=== PATIENT | female | born 1945 | race Caucasian/White ===

== ENCOUNTER 2019-02-19 16:16 | Inpatient (IN) ==
[2019-02-19] MEDS ORDERED: Ipratropium/Albuterol Neb 3 ML IH ONE (16:22)
[2019-02-19] MEDS ORDERED: Furosemide 40 MG/4 ML VIAL IVP ONE (16:22)
[2019-02-19] MEDS ORDERED: methylPREDNISolone 125 MG/2 ML VIAL IVP ONE (16:22)
--- NOTE | 2019-02-19 16:23 | Emergency Department Note ---
Disposition Clinical Impression: Congestive heart failure Qualifiers: Heart failure type: unspecified Heart failure chronicity: acute on chronic Qualified Code(s): I50.9 - Heart failure, unspecified Disposition: Admitted As Inpatient Condition: Fair Referrals: NONE,PCP [Non-Partnered Physician] - Forms: ED Satisfaction Letter Time of Disposition: 17:29 SOB HPI - General Chief Complaint: ED Shortness of Breath/Dyspnea Stated Complaint: shortness of breath Time Seen by Provider: 02/19/19 16:22 Source: patient, EMS Mode of arrival: EMS Limitations: no limitations Nursing Notes Reviewed: Yes Vital Signs Reviewed: Yes - History of Present Illness Patient presents with a chief complaint of "cannot breathe". She relates this has been coming on over 2 days and she has had her oxygen increased from 2-4 L. Because of her persistent dyspnea the nurse at [facility] has had her come in for evaluation. She states she has had a cough productive of scant clear phlegm. She has feeling some chills but no definite fever. She denies chest pain or palpitations. She denies any ill exposures. She has noted some increased swelling of her legs and orthopnea. This is similar to what she has hand with some pulmonary edema/CHF. She states she is followed that for a long time and in the last 2 weeks has had her Lasix increased. She also has history of asthma and COPD. Her last inhaler use was yesterday. She has had a change in medicines. She denies abdominal pain, nausea, diaphoresis or diarrhea. She denies back pain or jaw pain. She arrives by EMS on 4 L nasal cannula with reported saturation 94%. Transitioning to our bed she dropped to 76% on room a ir and stays at about 90% on 4 L. She is alert and answering questions appropriately. [facility] the [facility], the patient has CPAP available to her but she refuses to use it. Pt Subjective Complaint: shortness of breath Onset (ago): day(s) (2) Severity: moderate, severe Consistency/Duration: gradually worsening Improves with: oxygen, rest, upright position Worsens with: lying flat, exertion, movement, coughing Known history of: COPD, asthma, congestive heart failure Associated symptoms: Reports: fever, cough, wheezing, sputum production, orthopnea. Denies: chest pain, pain with inspiration, lower extremity pain, polyuria, polydipsia, parasthesias, palpitations, hemoptysis, diaphoresis, nausea/vomiting, syncope, abdominal pain, rash Treatment prior to arrival: oxygen Cough present: Yes Cough Description: Voluntary, Rattling, Wheezy Cough Frequency: Intermittent Sputum production: Yes Sputum Amount: Scant Sputum Color: Clear - Related Data Home oxygen amount: 4 liters Home Medications Medication Instructions Recorded Confirmed Albuterol Sulfate [Ventolin Hfa] 2 puff IH Q4H PRN 09/13/18 02/19/19 Citalopram Hydrobromide 40 mg PO DAILY 09/13/18 02/19/19 [Citalopram HBr] Furosemide [Lasix] 40 mg PO DAILY 09/13/18 02/19/19 Metoprolol Tartrate 50 mg PO BID 09/13/18 02/19/19 Montelukast [Singulair] 10 mg PO DAILY 09/13/18 02/19/19 Omeprazole [PriLOSEC] 20 mg PO DAILY 09/13/18 02/19/19 Potassium Chloride 20 meq PO DAILY 09/13/18 02/19/19 Topiramate 25 mg PO QAM 09/13/18 02/19/19 Topiramate 50 mg PO HS 09/13/18 02/19/19 Umeclidinium Ruth [Incruse 1 puff IH DAILY 09/13/18 02/19/19 Ellipta] Acetaminophen [Tylenol] 325 mg PO Q6HR PRN 01/27/19 02/19/19 Amlodipine Besylate 10 mg PO DAILY 01/27/19 02/19/19 Aspirin [Adult Aspirin Regimen] 81 mg PO DAILY 01/27/19 02/19/19 Ferrous Sulfate 325 mg PO DAILY 01/27/19 02/19/19 Multivitamin [Daily Multiple 1 tab PO DAILY 01/27/19 02/19/19 Vitamin] Dextran 70/Hypromellose/Pf 1 each OP QID PRN 02/19/19 02/19/19 [Artificial Tears Drops] Fluticasone/Vilanterol [Breo 1 each IH DAILY 02/19/19 02/19/19 Ellipta 200-25 Mcg INH] Nystatin POWDER [Nystop] 1 appl TP BID 02/19/19 02/19/19 Allergies Allergy/AdvReac Type Severity Reaction Status Date / Time Iodinated Contrast- Oral and Allergy Rash Verified 09/13/18 07:33 IV Dye [Iodinated Contrast Media - Oral and] All systems ED: reviewed and negative except as stated. Past Medical History - Past Medical History Attestation: Yes The following information was validated with the patient. Source: patient, old records reviewed, nursing notes reviewed Medical history: Reports: asthma, cancer, CHF, COPD, diabetes, hypertension, other (Elevated BMI) Surgical history: Reports: appendectomy, orthopedic, other, other Psychiatric history: Reports: no psych history [employer] history: Reports: bilateral tubal ligation - Social History Smoking Status: Never smoker Smokeless Tobacco Status: No Alcohol use: Reports: none Drug use: Reports: none Physical Exam - General Limitations: no limitations General appearance: alert, anxious, in distress (Moderate dyspnea) - Head Head exam: atraumatic, normocephalic, normal inspection - Eye Eye exam: Present: normal appearance, PERRL, EOMI - ENT ENT exam: normal exam, normal oropharynx, mucous membranes moist - Neck Neck exam: Present: normal inspection, full ROM, trachea midline. Absent: tenderness, meningismus - Chest Chest inspection: Present: normal inspection, symmetric chest wall rise - Respiratory Respiratory exam: Present: respiratory distress, wheezes, prolonged expiratory phase. Absent: accessory muscle use - Cardiovascular Cardiovascular exam: Present: regular rate, normal rhythm, normal heart sounds. Absent: JVD - Abdominal Exam Abdominal exam: Present: soft, Non-Tender, normal bowel sounds. Absent: tenderness, distention, guarding, rebound, rigidity - Extremities Exam Extremities exam: Present: normal inspection, full ROM, normal capillary refill, pedal edema (2+). Absent: tenderness, calf tenderness - Expanded Lower Extremity Exam Neurovascular/Tendon exam: Present: normal capillary refill. Absent: motor deficit, sensory deficit, tendon deficit Gait: not tested/not observed - Neurological Exam Neurological exam: Present: alert, oriented X3 - Psychiatric Psychiatric exam: Present: normal affect, anxious - Skin Skin exam: Present: warm, dry, intact, normal color. Absent: cyanosis, diaphoresis, pallor Course Course Narrative: 1725: With return of all testing, care is been discussed with the patient. She has been up to urinate twice after the IV Lasix but remained severely dyspneic with any exertion. She is apparently able to climb out the patient to be assisted to the bedside commode. I discussed her care and, although initially adamant about returning [facility], she is agreeable to staying for a day or 2 for diuresis and observation. We did contact the penitentiary and they would not be able to administer further IV doses of Lasix. A page has been roxanna nivia to Dr. Sharp for this purpose. Patient's presentation and evaluation has been discussed with Dr. Sharp. Verbal orders have been obtained for this patient's observation. Vital Signs Temperature 97.7 F 02/19/19 16:19 Pulse Rate 54 02/19/19 16:19 Respiratory Rate 22 02/19/19 16:19 Blood Pressure 172/51 02/19/19 16:19 O2 Sat by Pulse Oximetry 91 02/19/19 16:19 Temperature 97.7 F 02/19/19 16:19 Pulse Rate 63 02/19/19 17:18 Respiratory Rate 24 02/19/19 17:18 Blood Pressure 154/114 02/19/19 17:18 O2 Sat by Pulse Oximetry 93 02/19/19 17:18 Oxygen Delivery Oxygen Delivery Nasal Cannula Shortness of Breath/Dyspnea - Differential Diagnosis Likely: acute exacerbation of chronic obstructive airways disease, congestive heart failure, asthma with exacerbation. Unlikely: arrhythmia - Medical Records Medical records reviewed: Yes I reviewed the patient's medical records. - Lab Data Lab results reviewed: Yes I reviewed the patient's lab results. Result diagrams: 02/19/19 16:43 02/19/19 16:43 Lab Results 02/19/19 02/19/19 02/19/19 Range/Units 16:43 16:43 16:43 WBC 8.5 (4.3-11.1) K/mcL RBC 4.06 (3.82-4.97) M/mcL Hgb 11.3 L (11.5-15.4) g/dL Hct 40.2 (35.3-44.9) % MCV 99.0 (83.0-100.0) fL MCH 27.8 L (28.0-33.3) pg MCHC 28.1 L (31.6-35.5) g/dL RDW 16.8 H (11.5-14.5) % Plt Count 240 (140-400) K/mcL MPV 10.2 (9.4-12.4) fL Immature Gran % 0.7 (0-4) % Seg Neutrophils % 81.9 % Lymphocytes % 9.1 % Monocytes % 5.5 % Eosinophils % 2.7 % Basophils % 0.1 % Neutrophils # 7.0 (1.6-8.9) K/mcL Lymphocytes # 0.8 (0.6-4.6) K/mcL Monocytes # 0.5 (0.0-1.3) K/mcL Eosinophils # 0.2 (0.0-0.6) K/mcL Basophils # 0.0 (0.0-0.2) K/mcL Hypochromasia Present A (Not Present) Basophilic Stippling 1+ A (Not Present) Anisocytosis 1+ A (Not Present) Macrocytosis Present A (Not Present) PT 13.5 H (9.4-12.1) Seconds INR 1.2 Sodium 143 (136-145) mEq/L Potassium 4.0 (3.5-5.1) mEq/L Chloride 100 (98-107) mEq/L Carbon Dioxide 41 H* (23-29) mEq/L BUN 27 H (8-23) mg/dL Creatinine 0.97 (0.60-1.20) mg/dL Est GFR ( Amer) > 60 (> 60) Est GFR (Non-Af Amer) 56 L (> 60) BUN/Creatinine Ratio 28 H (6-26) Glucose 192 H (70-105) mg/dL Calculated Osmolality 306 H (280-300) Lactic Acid (0.5-2.2) mmol/L Calcium 9.2 (8.6-10.3) mg/dL Troponin I < 0.03 (< 0.04) ng/mL B-Natriuretic Peptide (Less than 100) pg/mL Urine Color (Yellow) Urine Clarity (Clear) Urine pH (5.0-8.0) pH Units Ur Specific [place] (1.010-1.025) Urine Protein (Neg-Trace) mg/dL Urine Glucose (UA) (Normal) mg/dL Urine Ketones (Negative) mg/dL Urine Blood (Negative) Urine Nitrite (Negative) Urine Bilirubin (Negative) Urine Urobilinogen (Normal) mg/dL Ur Leukocyte Esterase (Negative) Ur Culture Indicated? (NO) 02/19/19 02/19/19 02/19/19 Range/Units 16:43 16:43 17:12 WBC (4.3-11.1) K/mcL RBC (3.82-4.97) M/mcL Hgb (11.5-15.4) g/dL Hct (35.3-44.9) % MCV (83.0-100.0) fL MCH (28.0-33.3) pg MCHC (31.6-35.5) g/dL RDW (11.5-14.5) % Plt Count (140-400) K/mcL MPV (9.4-12.4) fL Immature Gran % (0-4) % Seg Neutrophils % % Lymphocytes % % Monocytes % % Eosinophils % % Basophils % % Neutrophils # (1.6-8.9) K/mcL Lymphocytes # (0.6-4.6) K/mcL Monocytes # (0.0-1.3) K/mcL Eosinophils # (0.0-0.6) K/mcL Basophils # (0.0-0.2) K/mcL Hypochromasia (Not Present) Basophilic Stippling (Not Present) Anisocytosis (Not Present) Macrocytosis (Not Present) PT (9.4-12.1) Seconds INR Sodium (136-145) mEq/L Potassium (3.5-5.1) mEq/L Chloride (98-107) mEq/L Carbon Dioxide (23-29) mEq/L BUN (8-23) mg/dL Creatinine (0.60-1.20) mg/dL Est GFR ( Amer) (> 60) Est GFR (Non-Af Amer) (> 60) BUN/Creatinine Ratio (6-26) Glucose (70-105) mg/dL Calculated Osmolality (280-300) Lactic Acid 0.8 (0.5-2.2) mmol/L Calcium (8.6-10.3) mg/dL Troponin I (< 0.04) ng/mL B-Natriuretic Peptide 278 H (Less than 100) pg/mL Urine Color Yellow (Yellow) Urine Clarity Clear (Clear) Urine pH 5.5 (5.0-8.0) pH Units Ur Specific [place] 1.020 (1.010-1.025) Urine Protein Trace (Neg-Trace) mg/dL Urine Glucose (UA) Normal (Normal) mg/dL Urine Ketones Negative (Negative) mg/dL Urine Blood Negative (Negative) Urine Nitrite Negative (Negative) Urine Bilirubin Negative (Negative) Urine Urobilinogen Normal (Normal) mg/dL Ur Leukocyte Esterase Negative (Negative) Ur Culture Indicated? NO (NO) - Radiology Data Radiology results reviewed: Yes I reviewed the patient's radiology results. Single view chest x-rays performed. This shows diffuse interstitial increase markings and perihilar fullness consistent with pulmonary edema. I do not see focal infiltrates or pneumothorax. The cardiac silhouette is enlarged. This is on my interpretation. Impressions Chest X-Ray 02/19/19 16:22 IMPRESSION: 1. Cardiomegaly and evidence of acute congestive heart failure. 2. Patchy left lung consolidation which may represent atelectasis though a secondary pneumonia cannot be excluded. D/ / Royer Pack MD / Royer Pack MD Interpreting Provider: Royer Pack MD - EKG Data EKG attestation: Yes I reviewed and interpreted this EKG. EKG shows normal: Reports: sinus rhythm, axis, intervals, QRS complexes, ST-T waves Rate: Reports: normal (60) Interpretation: Reports: no acute changes, normal EKG
[2019-02-19 16:57] LABS: Basophils % 0.1 %; Eosinophils # 0.2 K/mcL (0.0-0.6); Eosinophils % 2.7 %; Hematocrit 40.2 % (35.3-44.9); Hemoglobin 11.3 g/dL (11.5-15.4); Immature Granulocytes % 0.7 % (0-4); Lymphocytes # 0.8 K/mcL (0.6-4.6); Lymphocytes % 9.1 %; Mean Corpuscular HGB Conc 28.1 g/dL (31.6-35.5); Mean Corpuscular Hemoglobin 27.8 pg (28.0-33.3); Mean Platelet Volume 10.2 fL (9.4-12.4); Monocytes # 0.5 K/mcL (0.0-1.3); Monocytes % 5.5 %; Platelet Count 240 K/mcL (140-400); Red Blood Count 4.06 M/mcL (3.82-4.97); Red Cell Distribution Width 16.8 % (11.5-14.5); Segmented Neutrophils % 81.9 %; White Blood Count 8.5 K/mcL (4.3-11.1)
[2019-02-19 17:05] LABS: INR 1.2; Prothrombin Time 13.5 Seconds (9.4-12.1)
[2019-02-19 17:13] LABS: Basophilic Stippling 1+ (Not Present)
[2019-02-19 17:14] LABS: Hypochromasia Present (Not Present)
[2019-02-19 17:16] LABS: Anisocytosis 1+ (Not Present); Macrocytosis Present (Not Present)
[2019-02-19 17:17] LABS: Bilirubin,Urine Negative (Negative); Blood,Urine Negative (Negative); Clarity,Urine Clear (Clear); Color,Urine Yellow (Yellow); Glucose,Urine (UA) Normal (Normal); Ketones,Urine Negative (Negative); Leukocyte Esterase,Urine Negative (Negative); Nitrite,Urine Negative (Negative); PH,Urine 5.5 pH Units (5.0-8.0); Protein,Urine Trace mg/dL (Neg-Trace); Urobilinogen,Urine Normal (Normal)
[2019-02-19 17:20] LABS: BUN/Creatinine Ratio 28 (6-26); Blood Urea Nitrogen 27 mg/dL (8-23); Calcium 9.2 mg/dL (8.6-10.3); Carbon Dioxide 41 mEq/L (23-29); Chloride 100 mEq/L (98-107); Glucose 192 mg/dL (70-105); Osmolality,Calculated 306 (280-300); Sodium 143 mEq/L (136-145); Troponin I < 0.03 ng/mL (< 0.04); eGFR For African Americans > 60 (> 60); eGFR For Non-African Americans 56 (> 60)
[2019-02-19] MEDS ORDERED: Acetaminophen 325 MG TABLET PO PRN (17:59)
[2019-02-19] MEDS ORDERED: Ondansetron 4 MG/2 ML VIAL IVP PRN (17:59)
[2019-02-19] MEDS ORDERED: Mag Hydrox/Al Hydrox/Simeth 30 ML UDC PO PRN (17:59)
[2019-02-19] MEDS ORDERED: Naloxone 0.4 MG/ML INJ IVP PRN (17:59)
[2019-02-19] MEDS ORDERED: Artificial Tears SOLN 15 ML BOTTLE OP PRN (17:59)
[2019-02-19] MEDS ORDERED: Albuterol 2.5 MG/3 ML NEBULIZER IH PRN (17:59)
[2019-02-19] MEDS ORDERED: MOM Conc 10 ML UD.LIQ PO PRN (17:59)
[2019-02-19] MEDS: Furosemide 20 MG/2 ML VIAL IVP SCH (21:57)
[2019-02-19] MEDS: Topiramate 25 MG TABLET PO SCH (21:57)
[2019-02-19] MEDS: Nystatin POWDER 30 GM BOTTLE TP SCH (21:57)
[2019-02-19] MEDS: Ipratropium/Albuterol Neb 3 ML IH SCH (22:07)
[2019-02-20] MEDS: Ipratropium/Albuterol Neb 3 ML IH SCH ×2 (04:54→10:07)
[2019-02-20] MEDS: Furosemide 40 MG TABLET PO SCH (09:21)
[2019-02-20] MEDS: Nystatin POWDER 30 GM BOTTLE TP SCH ×2 (09:27→21:05)
[2019-02-20] MEDS: Multivit/Ca/Min/Fe/FA 1 TAB TABLET PO SCH (09:27)
[2019-02-20] MEDS: Topiramate 25 MG TABLET PO SCH ×2 (09:27→21:05)
[2019-02-20] MEDS: amLODIPine 5 MG TABLET PO SCH (09:27)
[2019-02-20] MEDS: Furosemide 20 MG/2 ML VIAL IVP SCH ×2 (09:27→21:05)
[2019-02-20] MEDS: Aspirin Enteric Coated 81 MG Tablet PO SCH (09:27)
[2019-02-20] MEDS: UMECLIDINIUM BROMIDE IH SCH (09:28)
--- NOTE | 2019-02-20 11:23 | Internal Med History&Physical ---
Date of Encounter: 02/20/19 Time of Encounter: 10:35 Assessment and Plan (1) Acute on chronic respiratory failure with hypoxemia Current visit: No Status: Acute She has been placed on BiPAP. Chest CT will be done to further evaluate. (2) Acute exacerbation of CHF (congestive heart failure) Current visit: No Status: Acute She has been started on IV Lasix. Continue metoprolol Qualifiers: Heart failure type: diastolic Qualified Code(s): I50.33 - Acute on chronic diastolic (congestive) heart failure (3) Hypertension Current visit: No Status: Chronic Continue metoprolol, Norvasc, and Lasix. Qualifiers: Hypertension type: essential hypertension Qualified Code(s): I10 - Essential (primary) hypertension (4) Anemia Current visit: No Status: Chronic Anemia testing will be checked in a.m. Qualifiers: Anemia type: iron deficiency Iron deficiency anemia type: unspecified iron deficiency Qualified Code(s): D50.9 - Iron deficiency anemia, unspecified (5) Restrictive lung disease Current visit: No Status: Chronic Continue supplemental oxygen. Chest CT will be done to further evaluate. Internal Medicine - H&P: HPI Chief complaint: Dyspnea Admitted From: Emergency Dept Plans for Post Hospital Care: Transfer Nursing Home Facility History of present illness: Ms. Araya is a 74 year old female who was sent to emergency room after she developed worsening dyspnea at a local SNF. She was evaluated in ER and was felt to have exacerbation of CHF. She was admitted to [facility] floor for ongoing care needs. She denies cough chest pain fevers chills vomiting or diarrhea. She reports the dyspnea has been present for several months but has gradually worsened. She was hospitalized approximately 4 weeks ago at [facility] with dyspnea felt to be due to exacerbation of heart failure. Echocardiogram 01/25/2019 showed LVEF of 65% with mild tricuspid regurgitation and mild to moderate pulmonary hypertension with estimated RVSP 49 mmHg. The interventricular septum and posterior wall thickness measurements were 0.90 and 1.20 cm respectively. E/A ratio was 1.1. She has history of hypertension. She claims EST approximately 2012 showed no evidence of ischemia. She denies DVT or pulmonary embolus. Her respiratory history is significant for being a lifelong nonsmoker. She had pulmonary function tests 11/06/2016 which showed severe restrictive lung disease with FVC 33% predicted. The FEV1/FVC was normal at 84%. MVV was decreased at 47% and DLCO was normal. She had increased airway resistance. She wears oxygen at home at 2 L/min. She has MAGDA but admits she does not use CPAP at home consistently as prescribed. She has been at [facility] for rehabilitation following her most recent [facility] discharge. Past Med Surg Social Fam HX - Past Medical History Medical history: asthma, cancer, CHF, COPD, diabetes, hypertension, other Additional medical history: meneire's disease. sleep apnea Psychiatric history: no psych history - Past Surgical History Surgical History: appendectomy, orthopedic, other, other Additional surgical history: Heart procedure as child - Social History Smoking Status: Never smoker Smokeless Tobacco Status: No Alcohol use: none Drug use: none - Family History Mother Family Member Ethnicity: Non- Living Status: Still Living Hx Family Cardiac Disorders: Yes (HTN) Hx Family Respiratory Disorders: Yes Hx Family Endocrine Disorder: No Father Family Member Ethnicity: Non- Living Status: Hx Family Cardiac Disorders: Yes (HTN) Brother Family Member Ethnicity: Non- Living Status: Still Living Hx Family Cardiac Disorders: Yes (HD requiring anticoagulation) Sister Family Member Ethnicity: Non- Living Status: Still Living Internal Medicine - H&P: Meds Albuterol Sulfate [Ventolin Hfa] 2 puff IH Q4H PRN 09/13/18 [History] Citalopram Hydrobromide [Citalopram HBr] 40 mg PO DAILY 09/13/18 [History] Furosemide [Lasix] 40 mg PO DAILY 09/13/18 [History] Metoprolol Tartrate 50 mg PO BID 09/13/18 [History] Montelukast [Singulair] 10 mg PO DAILY 09/13/18 [History] Omeprazole [PriLOSEC] 20 mg PO DAILY 09/13/18 [History] Potassium Chloride 20 meq PO DAILY 09/13/18 [History] Topiramate 25 mg PO QAM 09/13/18 [History] Topiramate 50 mg PO HS 09/13/18 [History] Umeclidinium Benedict [Incruse Ellipta] 1 puff IH DAILY 09/13/18 [History] Acetaminophen [Tylenol] 325 mg PO Q6HR PRN 01/27/19 [History] Amlodipine Besylate 10 mg PO DAILY 01/27/19 [History] Aspirin [Adult Aspirin Regimen] 81 mg PO DAILY 01/27/19 [History] Ferrous Sulfate 325 mg PO DAILY 01/27/19 [History] Multivitamin [Daily Multiple Vitamin] 1 tab PO DAILY 01/27/19 [History] Dextran 70/Hypromellose/Pf [Artificial Tears Drops] 1 each OP QID PRN 02/19/19 [History] Fluticasone/Vilanterol [Breo Ellipta 200-25 Mcg INH] 1 each IH DAILY 02/19/19 [History] Nystatin POWDER [Nystop] 1 appl TP BID 02/19/19 [History] Allergy/AdvReac Type Severity Reaction Status Date / Time Iodinated Contrast- Oral and Allergy Rash Verified 09/13/18 07:33 IV Dye [Iodinated Contrast Media - Oral and] All Systems PM: A 10-system review of systems was performed and is negative for pertinent findings except as documented above in the HPI. Review of systems: Gen.: Her weight has increased from 99.79 kg on 11/24/2017 to 107.048 kg on admission now Cardiovascular: As per history of present illness Respiratory: As per history of present illness GI: She states she has had elevated liver tests in the past but is uncertain of the specific diagnosis. She reports making dietary changes and the elevation resolved. She denies other disorders of her liver gallbladder or exocrine pancreas : She denies disorders of her kidney or bladder however review of past labs show likely chronic kidney disease stage 2-3 present since 2014 Neurologic: She denies large distribution strokes or seizures. Endocrine: She was diagnosed with DM 2 approximately 2014. Hemoglobin A1c was 6.4% on 01/31/2019 reviewed She has hyperlipidemia but denies known thyroid disease Hematology/oncology: She has anemia. She reports uterine cancer in 2016 treated with XRT. She believes she is cancer free at this time. She denies other internal malignancies Psychiatric: She has depression but denies anxiety other mental health issues Mus[place] skeletal: She has DJD. She has had bilateral carpal tunnel surgeries and left total knee replacement. She denies gout - Constitutional Vitals: Temp Pulse Resp BP Pulse Ox 98.2 F 70 22 136/54 93 02/20/19 11:04 02/20/19 11:04 02/20/19 11:04 02/20/19 11:04 02/20/19 11:04 Exam: Gen.: She is a well-developed obese female lying in bed who appears slightly dyspneic. She is lethargic but awakens and answers questions HEENT: Head is atraumatic and normocephalic. Eyes: EOMI. There is no scleral icterus. Mouth: Mucosa is moist. Neck: Supple and nontender. There is no thyromegaly or adenopathy noted. Heart: Regular without murmurs gallops or ectopics Lungs: No wheezes or crackles are heard. Abdomen: Soft and nontender. No masses or guarding are noted. Extremities: There is no cyanosis or clubbing noted. There is trace to 1+ edema of the dorsum of the feet and lower legs bilaterally. Dorsalis pedis and posterior tibial pulses are not palpable. Neurologic: Mental status: She is able to answer questions but is lethargic/somnolent. She gives appropriate answers upon being awakened. Cranial nerves: Smile is symmetric. Forehead wrinkles bilaterally. Tongue protrudes midline. EOMI. Motor: There is no pronator drift. Cerebellar: Finger to nose is intact bilaterally. Skin: Warm and dry Internal Med - H&P Results - Labs CBC & Chem 7: 02/19/19 16:43 02/19/19 16:43 Labs: Short CBC 02/19/19 Range/Units 16:43 WBC 8.5 (4.3-11.1) K/mcL Hgb 11.3 L (11.5-15.4) g/dL Hct 40.2 (35.3-44.9) % Plt Count 240 (140-400) K/mcL Neutrophils # 7.0 (1.6-8.9) K/mcL BMP 02/19/19 16:43 Sodium 143 Potassium 4.0 Chloride 100 Carbon Dioxide 41 H* BUN 27 H Creatinine 0.97 Glucose 192 H Calcium 9.2 Cardiac Enzymes 02/19/19 02/20/19 Range/Units 16:43 04:30 Troponin I < 0.03 < 0.03 (< 0.04) ng/mL Urine 02/19/19 Range/Units 17:12 Urine Color Yellow (Yellow) Urine Clarity Clear (Clear) Urine pH 5.5 (5.0-8.0) pH Units Ur Specific [place] 1.020 (1.010-1.025) Urine Protein Trace (Neg-Trace) mg/dL Urine Glucose (UA) Normal (Normal) mg/dL - Impressions ITS Impressions Chest X-Ray 02/19/19 16:22 IMPRESSION: 1. Cardiomegaly and evidence of acute congestive heart failure. 2. Patchy left lung consolidation which may represent atelectasis though a secondary pneumonia cannot be excluded. D/ / 02/19/2019 16:49:06 Royer Pack MD / dimitris Interpreting Provider: Royer Pack MD
[2019-02-20 11:34] LABS: ABG Base Excess 10 mEq/L (-2 to 3); ABG HCO3 42 mEq/L (21-27); ABG Oxygen Saturation 93 % (95-98); ABG PCO2 104 mmHg (35-45); ABG PH 7.22 pH Units (7.32-7.45); ABG PO2 86 mmHg (85-104); ABG TCO2 45 mEq/L (20-26)
[2019-02-20 12:43] LABS: ABG Base Excess 11 mEq/L (-2 to 3); ABG HCO3 42 mEq/L (21-27); ABG Oxygen Saturation 95 % (95-98); ABG PCO2 94 mmHg (35-45); ABG PH 7.26 pH Units (7.32-7.45); ABG PO2 94 mmHg (85-104); ABG TCO2 45 mEq/L (20-26); Blood Gas Modality BiLevel
[2019-02-21] MEDS: *HR* Enoxaparin 40 MG/0.4 ML SYRINGE SQ SCH (05:53)
[2019-02-21 06:33] LABS: Basophils % 0.2 %; Eosinophils # 0.1 K/mcL (0.0-0.6); Hematocrit 40.1 % (35.3-44.9); Hemoglobin 11.3 g/dL (11.5-15.4); Immature Granulocytes % 0.5 % (0-4); Lymphocytes # 0.8 K/mcL (0.6-4.6); Lymphocytes % 8.1 %; Mean Corpuscular HGB Conc 28.2 g/dL (31.6-35.5); Mean Corpuscular Volume 99.5 fL (83.0-100.0); Mean Platelet Volume 10.1 fL (9.4-12.4); Monocytes # 0.6 K/mcL (0.0-1.3); Monocytes % 5.9 %; Neutrophils # 7.8 K/mcL (1.6-8.9); Platelet Count 259 K/mcL (140-400); Red Blood Count 4.03 M/mcL (3.82-4.97); Red Cell Distribution Width 16.5 % (11.5-14.5); Segmented Neutrophils % 84.3 %; White Blood Count 9.3 K/mcL (4.3-11.1)
[2019-02-21 07:03] LABS: BUN/Creatinine Ratio 40 (6-26); Blood Urea Nitrogen 41 mg/dL (8-23); Calcium 9.7 mg/dL (8.6-10.3); Carbon Dioxide 43 mEq/L (23-29); Chloride 100 mEq/L (98-107); Glucose 141 mg/dL (70-105); Osmolality,Calculated 310 (280-300); Potassium 4.4 mEq/L (3.5-5.1); Sodium 144 mEq/L (136-145); eGFR For African Americans > 60 (> 60); eGFR For Non-African Americans 53 (> 60)
[2019-02-21 07:06] LABS: Potassium 4.4 mEq/L (3.5-5.1); Sodium 144 mEq/L (136-145)
[2019-02-21 07:07] LABS: BUN/Creatinine Ratio 40 (6-26); Blood Urea Nitrogen 41 mg/dL (8-23); Calcium 9.7 mg/dL (8.6-10.3); Carbon Dioxide 43 mEq/L (23-29); Chloride 100 mEq/L (98-107); Glucose 141 mg/dL (70-105); Osmolality,Calculated 310 (280-300); eGFR For African Americans > 60 (> 60); eGFR For Non-African Americans 53 (> 60)
[2019-02-21 07:08] LABS: Alanine Aminotransferase 12 Units/L (7-52); Albumin 3.4 g/dL (3.5-5.7); Albumin/Globulin Ratio 1.1 (1.1-2.2); Alkaline Phosphatase 90 Units/L (34-104); Aspartate Amino Transferase 10 Units/L (13-39); Bilirubin,Total 0.3 mg/dL (0.3-1.0); Globulin 3.2 g/dL (2.4-3.5); Total Protein 6.6 g/dL (6.4-8.9)
[2019-02-21 07:29] LABS: Basophilic Stippling 1+ (Not Present); Hypochromasia Present (Not Present); Polychromasia 1+ (Not Present); Stomatocytes 1+ (Not Present)
[2019-02-21 07:30] LABS: Anisocytosis 1+ (Not Present); Platelet Estimate Normal (Normal)
[2019-02-21 09:19] LABS: % Iron Saturation 8 % (15-50); Ferritin 91 ng/mL (10-120); Iron 30 mcg/dL (50-170); Transferrin 264 mg/dL (203-362)
[2019-02-21 09:23] LABS: Folate 12.6 ng/mL (3.0-16.0)
[2019-02-21] MEDS: Furosemide 20 MG/2 ML VIAL IVP SCH ×2 (09:59→22:09)
[2019-02-21] MEDS: amLODIPine 5 MG TABLET PO SCH (10:00)
[2019-02-21] MEDS: Aspirin Enteric Coated 81 MG Tablet PO SCH (10:00)
[2019-02-21] MEDS: Multivit/Ca/Min/Fe/FA 1 TAB TABLET PO SCH (10:00)
[2019-02-21] MEDS: Topiramate 25 MG TABLET PO SCH ×2 (10:00→22:08)
[2019-02-21] MEDS: UMECLIDINIUM BROMIDE IH SCH (10:05)
[2019-02-21] MEDS: Nystatin POWDER 30 GM BOTTLE TP SCH ×2 (10:06→22:10)
[2019-02-21] MEDS: Furosemide 40 MG TABLET PO SCH (12:17)
--- NOTE | 2019-02-21 15:15 | Internal Med Progress Note ---
Date of Encounter: 02/21/19 Time of Encounter: 15:08 - Assessment and plan (1) Acute on chronic respiratory failure with hypoxemia Current Visit: No Status: Acute Assessment and plan: February 21. Appears improved. Continue present Rx. Recheck ABG in a.m. Anticipate discharge home tomorrow if stable. (2) Acute exacerbation of CHF (congestive heart failure) Current Visit: No Status: Acute Assessment and plan: February 21. BN peptide decreased to 167. Continue present Rx. Qualifiers: Heart failure type: diastolic Qualified Code(s): I50.33 - Acute on chronic diastolic (congestive) heart failure (3) Hypertension Current Visit: No Status: Chronic Assessment and plan: February 21. Continue metoprolol, Norvasc, and Lasix Qualifiers: Hypertension type: essential hypertension Qualified Code(s): I10 - Essential (primary) hypertension (4) Anemia Current Visit: No Status: Chronic Assessment and plan: February 21. Anemia testing showed iron 30, transferrin saturation 8%, transferrin 264, ferritin 91, B12 719, and folate 12.6. Start ferrous sulfate with ascorbic acid in a.m. Qualifiers: Anemia type: iron deficiency Iron deficiency anemia type: unspecified iron deficiency Qualified Code(s): D50.9 - Iron deficiency anemia, unspecified (5) Restrictive lung disease Current Visit: No Status: Chronic Assessment and plan: February 21. CT showed groundglass opacification of the upper lobes bilaterally. No other worrisome pathology was seen. - Subjective Interval history: February 21. She has no new complaints and feels better. - Constitutional Vitals: Temp Pulse Resp BP Pulse Ox 97.9 F 58 19 147/59 99 02/21/19 11:40 02/21/19 11:40 02/21/19 11:40 02/21/19 11:40 02/21/19 11:40 Exam: She is resting comfortably in bed and appears in no acute distress. She is more awake alert and talkative today. Her affect is cheerful. I reviewed her medications and lab results. Internal Medicine: Result - Labs CBC & Chem 7: 02/21/19 05:15 02/21/19 05:15 Labs: Short CBC 02/21/19 Range/Units 05:15 WBC 9.3 (4.3-11.1) K/mcL Hgb 11.3 L (11.5-15.4) g/dL Hct 40.1 (35.3-44.9) % Plt Count 259 (140-400) K/mcL Neutrophils # 7.8 (1.6-8.9) K/mcL BMP 02/21/19 02/21/19 05:15 05:15 Sodium 144 144 Potassium 4.4 4.4 Chloride 100 100 Carbon Dioxide 43 H* 43 H* BUN 41 H 41 H Creatinine 1.03 1.03 Glucose 141 H 141 H Calcium 9.7 9.7 Liver Function 02/21/19 Range/Units 05:15 Total Bilirubin 0.3 (0.3-1.0) mg/dL AST 10 L (13-39) Units/L ALT 12 (7-52) Units/L Alkaline Phosphatase 90 (34-104) Units/L Albumin 3.4 L (3.5-5.7) g/dL - ABG Interpretation ABG results: ABG ABG pH 7.26 pH Units (7.32-7.45) L 02/20/19 12:35 ABG pCO2 94 mmHg (35-45) H* 02/20/19 12:35 ABG pO2 94 mmHg (85-104) 02/20/19 12:35 ABG O2 Saturation 95 % (95-98) 02/20/19 12:35 PT/INR, D-dimer PT 13.5 Seconds (9.4-12.1) H 02/19/19 16:43 Consult Discharge Plan - Plan Referrals: Anna Ashton MD [Primary Care Provider] - 1 week
[2019-02-22 06:02] LABS: Basophils % 0.3 %; Eosinophils # 0.2 K/mcL (0.0-0.6); Eosinophils % 2.2 %; Hematocrit 39.3 % (35.3-44.9); Hemoglobin 11.3 g/dL (11.5-15.4); Immature Granulocytes % 0.5 % (0-4); Lymphocytes # 0.5 K/mcL (0.6-4.6); Lymphocytes % 6.9 %; Mean Corpuscular HGB Conc 28.8 g/dL (31.6-35.5); Mean Corpuscular Hemoglobin 28.2 pg (28.0-33.3); Mean Platelet Volume 10.6 fL (9.4-12.4); Monocytes # 0.6 K/mcL (0.0-1.3); Monocytes % 7.4 %; Neutrophils # 6.5 K/mcL (1.6-8.9); Platelet Count 238 K/mcL (140-400); Red Blood Count 4.01 M/mcL (3.82-4.97); Red Cell Distribution Width 16.3 % (11.5-14.5); Segmented Neutrophils % 82.7 %; White Blood Count 7.8 K/mcL (4.3-11.1)
[2019-02-22] MEDS: *HR* Enoxaparin 40 MG/0.4 ML SYRINGE SQ SCH (06:35)
[2019-02-22 06:40] LABS: BUN/Creatinine Ratio 38 (6-26); Blood Urea Nitrogen 36 mg/dL (8-23); Calcium 9.3 mg/dL (8.6-10.3); Carbon Dioxide 43 mEq/L (23-29); Chloride 98 mEq/L (98-107); Glucose 130 mg/dL (70-105); Osmolality,Calculated 306 (280-300); Sodium 143 mEq/L (136-145); eGFR For African Americans > 60 (> 60); eGFR For Non-African Americans 57 (> 60)
[2019-02-22 06:48] LABS: Large Platelets Present (Not Present)
[2019-02-22 06:49] LABS: Platelet Estimate Normal (Normal)
[2019-02-22 06:51] LABS: Hypochromasia Present (Not Present)
[2019-02-22 06:52] LABS: Polychromasia 1+ (Not Present); Stomatocytes 1+ (Not Present)
[2019-02-22 06:58] LABS: Anisocytosis 2+ (Not Present)
[2019-02-22 06:59] LABS: Basophilic Stippling 1+ (Not Present)
[2019-02-22 07:00] LABS: Poikilocytosis 1+ (Not Present)
[2019-02-22] MEDS: UMECLIDINIUM BROMIDE IH SCH (07:28)
[2019-02-22] MEDS: Furosemide 20 MG/2 ML VIAL IVP SCH (08:03)
[2019-02-22] MEDS: Aspirin Enteric Coated 81 MG Tablet PO SCH (08:03)
[2019-02-22] MEDS: amLODIPine 5 MG TABLET PO SCH (08:04)
[2019-02-22] MEDS: Multivit/Ca/Min/Fe/FA 1 TAB TABLET PO SCH (08:04)
[2019-02-22] MEDS: Topiramate 25 MG TABLET PO SCH ×2 (08:04→21:11)
[2019-02-22] MEDS: Nystatin POWDER 30 GM BOTTLE TP SCH ×2 (08:04→21:12)
--- NOTE | 2019-02-22 10:01 | Internal Med Progress Note ---
Date of Encounter: 02/22/19 Time of Encounter: 09:55 - Assessment and plan (1) Acute on chronic respiratory failure with hypoxemia Current Visit: No Status: Acute Assessment and plan: February 21. Appears improved. Continue present Rx. Recheck ABG in a.m. Anticipate discharge home tomorrow if stable. February 22. Repeat ABG pending. Continue present Rx. (2) Acute exacerbation of CHF (congestive heart failure) Current Visit: No Status: Acute Assessment and plan: February 21. BN peptide decreased to 167. Continue present Rx. Qualifiers: Heart failure type: diastolic Qualified Code(s): I50.33 - Acute on chronic diastolic (congestive) heart failure (3) Hypertension Current Visit: No Status: Chronic Assessment and plan: February 21. Continue metoprolol, Norvasc, and Lasix Qualifiers: Hypertension type: essential hypertension Qualified Code(s): I10 - Essential (primary) hypertension (4) Anemia Current Visit: No Status: Chronic Assessment and plan: February 21. Anemia testing showed iron 30, transferrin saturation 8%, transferrin 264, ferritin 91, B12 719, and folate 12.6. Start ferrous sulfate with ascorbic acid in a.m. Qualifiers: Anemia type: iron deficiency Iron deficiency anemia type: unspecified iron deficiency Qualified Code(s): D50.9 - Iron deficiency anemia, unspecified (5) Restrictive lung disease Current Visit: No Status: Chronic Assessment and plan: February 21. CT showed groundglass opacification of the upper lobes bilaterally. No other worrisome pathology was seen. (6) Weakness Current Visit: Yes Status: Acute Assessment and plan: February 22. She will have PT/OT evaluations. Anticipate discharge to SNF in 1-2 days. - Subjective Interval history: February 21. She has no new complaints and feels better. February 22. She has no new complaints. She states she wishes to be discharged to [facility] for ongoing care needs after acute care discharge. - Constitutional Vitals: Temp Pulse Resp BP Pulse Ox 98.8 F 70 16 145/55 93 02/22/19 07:03 02/22/19 07:54 02/22/19 07:03 02/22/19 07:03 02/22/19 07:03 Exam: She is resting comfortably in a chair at bedside and appears in no acute distress. She is wearing oxygen by nasal cannula. Her affect is cheerful. Lungs are clear. I reviewed her medications and lab results. Internal Medicine: Result - Labs CBC & Chem 7: 02/22/19 04:35 02/22/19 04:35 Labs: Short CBC 02/22/19 Range/Units 04:35 WBC 7.8 (4.3-11.1) K/mcL Hgb 11.3 L (11.5-15.4) g/dL Hct 39.3 (35.3-44.9) % Plt Count 238 (140-400) K/mcL Neutrophils # 6.5 (1.6-8.9) K/mcL BMP 02/22/19 04:35 Sodium 143 Potassium 4.0 Chloride 98 Carbon Dioxide 43 H* BUN 36 H Creatinine 0.96 Glucose 130 H Calcium 9.3 - ABG Interpretation ABG results: ABG ABG pH 7.26 pH Units (7.32-7.45) L 02/20/19 12:35 ABG pCO2 94 mmHg (35-45) H* 02/20/19 12:35 ABG pO2 94 mmHg (85-104) 02/20/19 12:35 ABG O2 Saturation 95 % (95-98) 02/20/19 12:35 PT/INR, D-dimer PT 13.5 Seconds (9.4-12.1) H 02/19/19 16:43 Consult Discharge Plan - Plan Referrals: Anna Ashton MD [Primary Care Provider] - 1 week
[2019-02-22 10:07] LABS: ABG Base Excess 10 mEq/L (-2 to 3); ABG HCO3 39 mEq/L (21-27); ABG Oxygen Saturation 95 % (95-98); ABG PCO2 73 mmHg (35-45); ABG PH 7.33 pH Units (7.32-7.45); ABG PO2 83 mmHg (85-104); ABG TCO2 41 mEq/L (20-26)
[2019-02-23] MEDS: *HR* Enoxaparin 40 MG/0.4 ML SYRINGE SQ SCH (05:26)
[2019-02-23 06:52] VITALS: BP 174/71
[2019-02-23] MEDS: UMECLIDINIUM BROMIDE IH SCH (07:51)
[2019-02-23] MEDS: Multivit/Ca/Min/Fe/FA 1 TAB TABLET PO SCH (08:00)
[2019-02-23] MEDS: amLODIPine 5 MG TABLET PO SCH (08:00)
[2019-02-23] MEDS: Aspirin Enteric Coated 81 MG Tablet PO SCH (08:00)
[2019-02-23] MEDS: Nystatin POWDER 30 GM BOTTLE TP SCH (08:01)
[2019-02-23] MEDS: Topiramate 25 MG TABLET PO SCH (08:01)
[2019-02-23] MEDS ORDERED: Furosemide 40 MG TABLET PO SCH (09:00)
--- NOTE | 2019-02-23 10:17 | Discharge Summary ---
Orders not resulted at time of discharge: Pending orders 02/19/19 16:51 Culture,Blood [BC] Stat Date of Encounter: 02/23/19 Time of Encounter: 10:08 - Discharge Diagnosis (1) Acute on chronic respiratory failure with hypoxemia Priority: Primary Status: Acute (2) Acute exacerbation of CHF (congestive heart failure) Priority: Secondary Status: Acute Qualifiers: Heart failure type: diastolic Qualified Code(s): I50.33 - Acute on chronic diastolic (congestive) heart failure (3) Hypertension Priority: Secondary Status: Chronic Qualifiers: Hypertension type: essential hypertension Qualified Code(s): I10 - Essential (primary) hypertension (4) Anemia Priority: Secondary Status: Chronic Qualifiers: Anemia type: iron deficiency Iron deficiency anemia type: unspecified iron deficiency Qualified Code(s): D50.9 - Iron deficiency anemia, unspecified (5) Restrictive lung disease Priority: Secondary Status: Chronic (6) Weakness Priority: Secondary Status: Chronic Hospital course: Ms. Araya is a 74 year old female who was sent to emergency room after she developed worsening dyspnea at a local SNF. She was evaluated in ER and was felt to have exacerbation of CHF. She was admitted to [facility] for ongoing care needs. Initial orders were written by the emergency room physician. I saw her on February 20 and performed the history and physical. She was placed on BiPAP. Her respiratory status improved with follow-up ABG on February 23 showing pH 7.33 and PCO2 73. She will continue BiPAP at bedtime and when necessary during day time. She was given IV Lasix. She had good diuresis and BN peptide decreased to 167 on February 21. She will resume Lasix 40 mg po daily. Her PCP can monitor. Chest CT showed groundglass opacities in the upper lobes bilaterally possibly representing atypical pneumonia or pulmonary edema. She remained afebrile with normal WBC. Antibiotics were not given. This can be monitored at the SNF. Anemia testing showed iron 30, transferrin saturation 8%, transferrin 264, ferritin 91, B12 719, and folate 12.6. Hemoglobin remained stable 11.3. She will be given ascorbic acid and continue ferrous sulfate. Her PCP can monitor labs. On February 23 she was stable for discharge to [facility] for ongoing care needs. - Time Spent with Patient Total time spent providing and/or coordinating discharge services: - Discharge Medications Prescriptions: New Ascorbic Acid [C-500] 500 mg PO DAILY 365 Days tablet Continued Albuterol Sulfate [Ventolin Hfa] 2 puff IH Q4H PRN PRN Reason: Shortness Of Breath Citalopram Hydrobromide [Citalopram HBr] 40 mg PO DAILY Furosemide [Lasix] 40 mg PO DAILY Metoprolol Tartrate 50 mg PO BID Montelukast [Singulair] 10 mg PO DAILY Potassium Chloride 20 meq PO DAILY Topiramate 25 mg PO QAM Topiramate 50 mg PO HS Umeclidinium [employer] [Incruse Ellipta] 1 puff IH DAILY Acetaminophen [Tylenol] 325 mg PO Q6HR PRN PRN Reason: Pain Amlodipine Besylate 10 mg PO DAILY Aspirin [Adult Aspirin Regimen] 81 mg PO DAILY Multivitamin [Daily Multiple Vitamin] 1 tab PO DAILY Nystatin POWDER [Nystop] 1 appl TP BID Dextran 70/Hypromellose/Pf [Artificial Tears Drops] 1 each OP QID PRN PRN Reason: Dry Eyes Fluticasone/Vilanterol [Breo Ellipta 200-25 Mcg INH] 1 each IH DAILY Ferrous Sulfate 325 mg PO DAILY #0 Changed Omeprazole [PriLOSEC] 20 mg PO DAILY PRN 365 Days PRN Reason: Dyspepsia Home Medications: Albuterol Sulfate [Ventolin Hfa] 2 puff IH Q4H PRN 09/13/18 [History] Citalopram Hydrobromide [Citalopram HBr] 40 mg PO DAILY 09/13/18 [History] Furosemide [Lasix] 40 mg PO DAILY 09/13/18 [History] Metoprolol Tartrate 50 mg PO BID 09/13/18 [History] Montelukast [Singulair] 10 mg PO DAILY 09/13/18 [History] Potassium Chloride 20 meq PO DAILY 09/13/18 [History] Topiramate 25 mg PO QAM 09/13/18 [History] Topiramate 50 mg PO HS 09/13/18 [History] Umeclidinium [employer] [Incruse Ellipta] 1 puff IH DAILY 09/13/18 [History] Acetaminophen [Tylenol] 325 mg PO Q6HR PRN 01/27/19 [History] Amlodipine Besylate 10 mg PO DAILY 01/27/19 [History] Aspirin [Adult Aspirin Regimen] 81 mg PO DAILY 01/27/19 [History] Multivitamin [Daily Multiple Vitamin] 1 tab PO DAILY 01/27/19 [History] Dextran 70/Hypromellose/Pf [Artificial Tears Drops] 1 each OP QID PRN 02/19/19 [History] Fluticasone/Vilanterol [Breo Ellipta 200-25 Mcg INH] 1 each IH DAILY 02/19/19 [History] Nystatin POWDER [Nystop] 1 appl TP BID 02/19/19 [History] Ascorbic Acid [C-500] 500 mg PO DAILY 365 Days tablet 02/23/19 [Rx] Ferrous Sulfate 325 mg PO DAILY #0 02/23/19 [Rx] Omeprazole [PriLOSEC] 20 mg PO DAILY PRN 365 Days 02/23/19 [Rx] Allergies/Adverse Reactions: Allergy/AdvReac Type Severity Reaction Status Date / Time Iodinated Contrast- Oral and Allergy Rash Verified 09/13/18 07:33 IV Dye [Iodinated Contrast Media - Oral and] Date of admission: 02/20/19 12:36 Primary care physician: Anna Ashton Consults: 02/21/19 16:55 Consult to Occupational Therapy [CONS] Routine Comment: Evaluate, develop and implement POC Reason for Consult: Evaluate, develop and implement POC Does patient have active BEDREST order?: No Is patient medically & hemodynamically stable?: Yes Patient assessed for mobility or mobilized this visit?: Yes Consult to Physical Therapy [CONS] Routine Comment: Evaluate, develop and implement POC Reason for Consult: Evaluate, develop and implement POC Does patient have active BEDREST order?: No Is patient medically & hemodynamically stable?: Yes Patient assessed for mobility or mobilized this visit?: Yes - Constitutional Vitals: Temp Pulse Resp BP Pulse Ox 98.8 F 71 28 174/71 94 02/23/19 06:48 02/23/19 06:48 02/23/19 06:48 02/23/19 06:48 02/23/19 06:48 - Patient Status Disposition: Transfer SNF Condition: Fair - Discharge Instructions Follow Up With: Anna Ashton MD [Primary Care Provider] - 1 week - Diet and Activity Activity: as per physical therapy, wear oxygen at all times Diet: diabetic diet
--- NOTE | 2019-02-23 10:25 | Physician Discharge Referral ---
ExtendedCare Referral Info Transfer To: [facility] Provider in Charge: Aron Provider in Charge after Transfer: PCP - Diagnosis (1) Acute on chronic respiratory failure with hypoxemia Priority: Primary Status: Acute (2) Acute exacerbation of CHF (congestive heart failure) Priority: Secondary Status: Acute (3) Hypertension Priority: Secondary Status: Chronic (4) Anemia Priority: Secondary Status: Chronic (5) Restrictive lung disease Priority: Secondary Status: Chronic (6) Weakness Priority: Secondary Status: Chronic Prognosis: Fair Aware of Diagnosis: Patient Aware of Prognosis: Patient - Transfer Medications Prescriptions: Ascorbic Acid [C-500] 500 mg PO DAILY 365 Days tablet Home Medications: Albuterol Sulfate [Ventolin Hfa] 2 puff IH Q4H PRN 09/13/18 [History] Citalopram Hydrobromide [Citalopram HBr] 40 mg PO DAILY 09/13/18 [History] Furosemide [Lasix] 40 mg PO DAILY 09/13/18 [History] Metoprolol Tartrate 50 mg PO BID 09/13/18 [History] Montelukast [Singulair] 10 mg PO DAILY 09/13/18 [History] Potassium Chloride 20 meq PO DAILY 09/13/18 [History] Topiramate 25 mg PO QAM 09/13/18 [History] Topiramate 50 mg PO HS 09/13/18 [History] Umeclidinium [employer] [Incruse Ellipta] 1 puff IH DAILY 09/13/18 [History] Acetaminophen [Tylenol] 325 mg PO Q6HR PRN 01/27/19 [History] Amlodipine Besylate 10 mg PO DAILY 01/27/19 [History] Aspirin [Adult Aspirin Regimen] 81 mg PO DAILY 01/27/19 [History] Multivitamin [Daily Multiple Vitamin] 1 tab PO DAILY 01/27/19 [History] Dextran 70/Hypromellose/Pf [Artificial Tears Drops] 1 each OP QID PRN 02/19/19 [History] Fluticasone/Vilanterol [Breo Ellipta 200-25 Mcg INH] 1 each IH DAILY 02/19/19 [History] Nystatin POWDER [Nystop] 1 appl TP BID 02/19/19 [History] Ascorbic Acid [C-500] 500 mg PO DAILY 365 Days tablet 02/23/19 [Rx] Ferrous Sulfate 325 mg PO DAILY #0 02/23/19 [Rx] Omeprazole [PriLOSEC] 20 mg PO DAILY PRN 365 Days 02/23/19 [Rx] Allergies/Adverse Reactions: Allergy/AdvReac Type Severity Reaction Status Date / Time Iodinated Contrast- Oral and Allergy Rash Verified 09/13/18 07:33 IV Dye [Iodinated Contrast Media - Oral and] - Respiratory Orders Oxygen / L per min (2 L/m by nasal cannula 23/03. Bleed into BiPAP at bedtime and when BiPAP used during daytime) Smoking Cessation: Smoking cessation has been advised. For more information, call the [place] Tobacco Quit Line at 1-616-KSBY-NOW. - Lab Orders Lab Orders: Other (include drug levels w/frequency) (CBC with differential, BMP, BNP peptide, magnesium level in 1 week) - Rehabiliation Orders Rehab Potential: Fair Rehab Orders: Evaluation for Physical Therapy, Evaluation for Occupational Therapy - Diet Orders No Concentrated Sweets CERTIFICATION: I certify that the transfer of the above named patient to an Extended Care Facility is necessary for the continuing treatment of the diagnosis listed. The above information is true and accurate reflection of patient's current condition. Confidential - Redisclosure prohibited without a patient's written consent.
--- NOTE | 2019-02-23 12:53 | Electrocardiograph Report ---
[place] [id number] Test Date: 2019-02-19 Pat Name: Leanne Araya Department: EDP-16 Room: [facility] Gender: F Dental Secretary: : 1945 Requested By: Vinny Hernandez Order Number: [id number] Reading MD: Carmina Witt Measurements Intervals [place] Rate: 60 P: 67 IA: 160 QRS: 82 QRSD: 89 T: 33 QT: 426 QTc: 426 Interpretive Statements Sinus rhythm Electronically Signed On 02-23-2019 12:51:48 EDT by Carmina Witt
== END 2019-02-23 12:50 | DRG 189 ==
LOC: EMEROOPIK 16:16 → INPPIK 16:16
PROVIDERS: ADMIT Internal Medicine; ATTEND Internal Medicine